=== PATIENT | female | born 1980 | race Caucasian/White ===

== ENCOUNTER 2017-01-06 08:08 | Emergency (ER) | payer OTHER ==
[~2017-01-06] VITALS: Ht 160 cm; Wt 55.5 kg
[2017-01-06 08:10] VITALS: BP 99/57; PULSE 91; RESP 16; TEMP 98.7; O2SAT 98
--- NOTE | 2017-01-06 08:15 | PD ---
HPI Chief Complaint: sore throat Time Seen by Provider: 08:14 Travel History International Travel<30 days: No Contact w/Intl Traveler<30days: No Traveled to known affect area: No History of Present Illness HPI 36-year-old female patient came to the emergency room with history of sore throat for past 5 days. Patient has been having chills with fever. She has been taking Motrin for the fever. The last dose of Motrin was at 6:30 AM this morning. She was started on amoxicillin 500 mg twice a day 4 days ago. She is otherwise a relatively healthy person. Patient has been complaining of pain during swallowing. There have been some sick members in the family and the last 7-10 days that she has come in contact with. Vital signs were relatively stable. No associated vomiting or diarrhea. No associated difficulty breathing. PFSH Past Medical History Narrative Medical List of her past medical, surgical, social and family history is reviewed from the nursing note. Social History Tobacco Use: Yes Allergies-Medications (Allergen,Severity, Reaction): Coded Allergies: No Known Allergies (Unverified , 01/06/17) Comments No known drug allergies. Reported Meds & Prescriptions Reported Meds & Active Scripts Active Nasonex Nasal [place] (Mometasone Furoate) 50 Mcg/Act Naspr 2 [place] EACH NARE DAILY Clindamycin (Clindamycin HCl) 300 Mg Cap 300 Mg PO Q6H 10 Days Dexamethasone 6 Mg Tab 6 Mg PO DAILY 1 Days Narrative Medication list of her home medications reviewed from the nursing note. Review of Systems Except as stated in HPI: all other systems reviewed are Neg General / Constitutional: Positive: Fever, Chills HENT: Positive: Sore Throat Respiratory: Positive: Cough Physical Exam Narrative GENERAL: Awake, alert, mild distress SKIN: Focused skin assessment warm/dry. HEAD: Atraumatic. Normocephalic. EYES: Pupils equal and round. No scleral icterus. No injection or drainage. ENT: No nasal bleeding or discharge. Mucous membranes pink and moist. Erythematous pharynx, enlarged tonsils right worse than left with peritonsillar swelling and some exudate NECK: Trachea midline. No JVD. CARDIOVASCULAR: Regular rate and rhythm. No murmur appreciated. RESPIRATORY: No accessory muscle use. Clear to auscultation. Breath sounds equal bilaterally. GASTROINTESTINAL: Abdomen soft, non-tender, nondistended. Hepatic and splenic margins not palpable. MUSCULOSKELETAL: No obvious deformities. No clubbing. No cyanosis. No edema. NEUROLOGICAL: Awake and alert. No obvious cranial nerve deficits. Motor grossly within normal limits. Normal speech. PSYCHIATRIC: Appropriate mood and affect; insight and judgment normal. Data Data Last Documented VS Orders Orders Complete Blood Count With Diff (01/06/17 08:19) Basic Metabolic Panel (Bmp) (01/06/17 08:19) Monoscreen (01/06/17 08:19) Group A Rapid Strep Screen (01/06/17 08:19) Influenzae A/B Antigen (01/06/17 08:19) Iv Access Insert/Monitor (01/06/17 08:19) Oximetry (01/06/17 08:19) Sodium Chloride 0.9% Flush (Ns Flush) (01/06/17 08:30) Ceftriaxone Inj (Rocephin Inj) (01/06/17 08:30) Blood Culture (01/06/17 08:19) Ct Soft Tiss Neck W Iv Cont (01/06/17 ) Ed Urine Pregnancytest Poc (01/06/17 08:19) Clindamycin 600 Mg Premix (Cleocin 600 M (01/06/17 08:30) Sodium Chlor 0.9% 1000 Ml Inj (Ns 1000 M (01/06/17 08:30) Dexamethasone Inj (Decadron Inj) (01/06/17 09:15) Strep Culture (Group A) (01/06/17 08:30) Iohexol 350 Inj (Omnipaque 350 Inj) (01/06/17 09:46) Ed Discharge Order (01/06/17 10:13) Labs Laboratory Tests Test 01/06/17 08:40 White Blood Count 6.6 TH/MM3 Red Blood Count 4.24 MIL/MM3 Hemoglobin 12.2 GM/DL Hematocrit 36.6 % Mean Corpuscular Volume 86.4 FL Mean Corpuscular Hemoglobin 28.7 PG Mean Corpuscular Hemoglobin Concent 33.2 % Red Cell Distribution Width 13.3 % Platelet Count 212 TH/MM3 Mean Platelet Volume 7.8 FL Neutrophils (%) (Auto) 68.9 % Lymphocytes (%) (Auto) 15.3 % Monocytes (%) (Auto) 14.3 % Eosinophils (%) (Auto) 1.2 % Basophils (%) (Auto) 0.3 % Neutrophils # (Auto) 4.5 TH/MM3 Lymphocytes # (Auto) 1.0 TH/MM3 Monocytes # (Auto) 0.9 TH/MM3 Eosinophils # (Auto) 0.1 TH/MM3 Basophils # (Auto) 0.0 TH/MM3 CBC Comment DIFF FINAL Differential Comment Blood Urea Nitrogen 9 MG/DL Creatinine 0.82 MG/DL Random Glucose 130 MG/DL Calcium Level 8.5 MG/DL Sodium Level 136 MEQ/L Potassium Level 4.0 MEQ/L Chloride Level 106 MEQ/L Carbon Dioxide Level 24.2 MEQ/L Anion Gap 6 MEQ/L Estimat Glomerular Filtration Rate 78 ML/MIN Monoscreen NEG MDM Medical Decision Making Medical Screen Exam Complete: Yes Emergency Medical Condition: Yes Medical Record Reviewed: Yes Differential Diagnosis Peritonsillar abscess, strep pharyngitis, infectious mononucleosis Narrative Course 10:10 AM patient was given IV fluid bolus 1 L, IV Rocephin and IV clindamycin. Significantly elevated monocyte count on the CBC differential. Chemistry was otherwise within normal limit. Monoscreen, influenza and strep throat were negative. 10 mg of IV Decadron has been ordered as well. CT scan is suggestive of tonsillitis with reactive cervical lymphadenopathy. At this point I'm comfortable discharging her home. She will go home with prescriptions. Procedures EKG Prior to Arrival: No Diagnosis Primary Impression: Acute tonsillitis Qualified Codes: J03.90 - Acute tonsillitis, unspecified Additional Impression: Odynophagia Referrals: Primary Care Physician Additional Instructions: Return to the ER if the symptoms worsen or any other new concerns like difficulty breathing or just not feeling well. Otherwise follow-up with your primary care. Take the medications as per the prescription direction. Med/Other Pt SpecificInfo: Prescription(s) given Scripts Mometasone Nasal [place] (Nasonex Nasal [place]) 50 Mcg/Act Naspr 2 SPRAY EACH NARE DAILY for Allergy Management, #1 BOTTLE 0 Refills Prov: Pierce Chand MD 01/06/17 Clindamycin (Clindamycin) 300 Mg Cap 300 MG PO Q6H for Infection for 10 Days, #40 CAP 0 Refills Prov: Pierce Chand MD 01/06/17 Dexamethasone (Dexamethasone) 6 Mg Tab 6 MG PO DAILY for 1 Day, #1 TAB 0 Refills Prov: Pierce Chand MD 01/06/17 Disposition: 01 DISCHARGE HOME Condition: Stable Pierce Chand MD Jan 06, 2017 08:15
[2017-01-06 08:19] VITALS: PULSE 90; RESP 16; O2SAT 95
[2017-01-06] MEDS ORDERED: cefTRIAXone INJ 1,000 MG in SODIUM CHLORIDE 0.9% INJ 100 ML IV ONE (08:30)
[2017-01-06] MEDS ORDERED: CLINDAMYCIN 600 MG/DEX PREMIX 50 ML IV ONE (08:30)
[2017-01-06] MEDS ORDERED: SODIUM CHLORIDE 0.9% FLUSH 10 ML FLUSH IVF PRN (08:30)
[2017-01-06] MEDS ORDERED: SODIUM CHLOR 0.9% 1000 ML INJ 1,000 ML IV ONE (08:30)
[2017-01-06 08:40] VITALS: PULSE 90; RESP 16; O2SAT 96
[2017-01-06 09:08] LABS: AUTOMATED NEUTROPHIL # 4.5 TH/MM3 (1.8-7.7); BASOPHIL % 0.3 % (0.0-2.0); EOSINOPHIL # 0.1 TH/MM3 (0-0.4); EOSINOPHIL % 1.2 % (0.0-4.0); HEMATOCRIT 36.6 % (35.0-46.0); HEMO FLAGS DIFF FINAL; LYMPH % 15.3 % (9.0-44.0); MEAN CELL VOLUME 86.4 FL (80.0-100.0); MEAN CORPUSCULAR HEMOGLOBIN 28.7 PG (27.0-34.0); MEAN CORPUSCULAR HGB CONC 33.2 % (32.0-36.0); MONO % 14.3 % (0.0-8.0); NEUT % 68.9 % (16.0-70.0); PLATELET COUNT 212 TH/MM3 (150-450); RED BLOOD COUNT 4.24 MIL/MM3 (4.00-5.30); RED CELL DISTRIBUTION WIDTH 13.3 % (11.6-17.2); WHITE BLOOD COUNT 6.6 TH/MM3 (4.0-11.0)
[2017-01-06 09:14] VITALS: PULSE 80; RESP 15; O2SAT 100
[2017-01-06] MEDS ORDERED: DEXAMETHASONE SOD PHOS 20 MG/5 ML VIAL IV PUSH ONE (09:15)
[2017-01-06 09:23] LABS: BICARBONATE 24.2 MEQ/L (21.0-32.0)
[2017-01-06] MEDS ORDERED: IOHEXOL 350 MG/ML 10 ML VIAL (for RAD DIAG) IVCONTRAST ONE (09:46)
--- NOTE | 2017-01-06 09:57 | RADRPT ---
EXAM DATE/TIME: 01/06/2017 09:34 [facility] COMPARISON: No previous studies available for comparison. INDICATIONS : Evaluate for abscess, right neck pain IV CONTRAST: 65 cc Omnipaque 350 (iohexol) IV RADIATION DOSE: 14.85 CTDIvol (mGy) MEDICAL HISTORY : None SURGICAL HISTORY : section. ENCOUNTER: Initial ACUITY: 1 day PAIN SCALE: 6/10 LOCATION: Right pelvis TECHNIQUE: Volumetric scanning of the neck was performed. Using automated exposure control and adjustment of th e mA and/or kV according to patient size, radiation dose was kept as low as reasonably achievable to obtain optimal diagnostic quality images. DICOM format image data is available electronically for r eview and comparison. FINDINGS: NASOPHARYNX: The nasopharyngeal airway has a normal configuration. No mucosal thickening or mass is seen. OROPHARYNX: The intrinsic muscles of the tongue are symmetric. The tonsillar pillars are intact. The prevertebr al soft tissues are not thickened. LARYNX: The supraglottic, glottic, and infraglottic structures are intact. PARAPHARYNGEAL: The parapharyngeal space is intact. SALIVARY GLANDS: The parotid and submandibular glands are intact. LYMPH NODES: There are some prominent lymph nodes in the right carotid chain, the largest near the angle of the ma ndible measuring 1.9 cm in diameter THYROID: Homogeneous enhancement without evidence of nodule. BONES: Unremarkable. CONCLUSION: 1. There are some prominent lymph nodes in the right carotid chain with the largest measuring 1.9 cm in diameter at the level of the mandibular angle. These are likely reactive. 2. However, no associated abscess or mass lesion Darius Machado MD on January 06, 2017 at 9:49 Board Certified Radiologist. This report was verified electronically.
[2017-01-06] MEDS ORDERED: MOME17I EACH NARE (10:13)
[2017-01-06] MEDS ORDERED: CLIN300C5 PO (10:13)
[2017-01-06] MEDS ORDERED: DEXA6TAB PO (10:13)
[2017-01-06 10:30] VITALS: TEMP 99.1
== END 2017-01-06 10:33 | disposition home or self-care (01) ==
LOC: NEPC 08:08
DX: J03.90 Acute tonsillitis, unspecified (principal); Z72.0 Tobacco use
CPT/HCPCS: 70491; 80048; 84703; 85025; 86308; 87040; 87081; 87804; 87880; 96365; 96368; 99285; J0696; J1100; J7030; Q9967